=== PATIENT | female | born 1995 | race Caucasian/White ===

== ENCOUNTER 2025-02-20 04:30 | Observation (INO) | payer BC ==
[~2025-02-20] VITALS: Ht 170.2 cm; Wt 113.4 kg
--- NOTE | 2025-02-20 06:06 | DVHDS2 ---
Discharge Summary Date of Admission Feb 20, 2025 at 04:30 Date of Discharge: Feb 20, 2025 Admitting Diagnosis Rule out PIH 39-6/7 week Wounds: None Labs/Diagnostic Data: Pending Brief Hx & Hospital Course: Patient had NST performed pending PH labs we will handed off to the day shift Dr. Montero Consults/Reason for consult None Operations or Procedures None Condition at Discharge: Good Final Diagnosis/Problems List 39+ weeks rule out PH Discharge Disposition: Home Discharge Instruct/Medications Diet: Regular Activity: Light activity Activity comment: PH precautions and kick counts early follow up in monitoring Follow Up/Referral: As scheduled Discharge Statement: "Patient was advised to return to the ER or call 911 if any headaches, dizziness, shortness of breath, chest pain, abdominal pain, bleeding, fevers, or worsening of medical condition. Patient was counseled about treatment plan, medications, possible side effects, patientverbalized understanding. All questions were answered to the best of my ability. This discharge took greater then 30 minutes in planning, reviewing documentation, counseling the patient, and discussing with other team members." DME: Diagnosis: 39+ weeks rule out PIH ASSESSMENT ASSESSMENT Assessment Visit Coding OBGYN Date of Service: Feb 20, 2025 Billing Provider: EMIL VENTURA DO CONFIDENTIAL INVESTIGATOR Common Visit Codes: 58183-IRD/OBS SAME DATE (LOW), 98974-PZD/OBS SAME DATE (MOD) CONFIDENTIAL INVESTIGATOR Procedure Codes: 31796-22- NON-STRESS TEST EMIL VENTURA DO Feb 20, 2025 06:06
[2025-02-20 07:29] LABS: Hematocrit 37.4 % (36.0-46.0); Hemoglobin 12.9 g/dL (12.2-16.2); Mean Corpuscular Hemoglobin 31.1 pg (28.0-32.0); Mean Corpuscular Volume 90.6 fL (80.0-100.0); Nucleated Red Blood Cells % 0.0 %
[2025-02-20 07:31] LABS: Alanine Aminotransferase 16 U/L (7-40); Calcium 9.0 mg/dL (8.7-10.4); Carbon Dioxide 22 mmol/L (20-31); Chloride 105 mmol/L (98-107)
[2025-02-20 07:32] LABS: Albumin 3.6 g/dL (3.2-4.8); Anion Gap 10 (5-15); BUN/Creatinine Ratio 10.4 (10.0-20.0); Glucose 77 mg/dL (74-106); Potassium 3.7 mmol/L (3.5-5.1); Sodium 137 mmol/L (136-145); Total Protein 6.4 g/dL (5.7-8.2); Uric Acid 6.3 mg/dL (3.1-7.8)
[2025-02-20 07:35] LABS: Alkaline Phosphatase 159 U/L (46-116); Bilirubin, Total 0.3 mg/dL (0.2-1.0); Blood Urea Nitrogen 7 mg/dL (9-23)
--- NOTE | 2025-02-20 08:06 | DVH ---
LIMITED OB ULTRASOUND > 14 WKS: HISTORY: Estimated weight. -induced hypertension. TECHNIQUE: Multiple real-time grayscale images of the gravid uterus with duplex Doppler color flow an d M-mode spectral analysis. biophysical profile was also performed. COMPARISON: None. FINDINGS: IUP single live fetus at 39 weeks 5 days based on composite averages of the BPD, head circumference, abdominal circumference and femur length. Estimated weight 3918 grams. heart rate 143 beats per minute. JEN 11.6 cm Cervix is not visualized. Cephalic presentation Grade 3 placenta without previa or abruption, in posterior position. BPP profile is an overall score of 8/8, with 2/2 points for breathing, with at least one episode of breathing over a 30 second duration during a 30 minute observation, 2/2 points for m ovements, with 3 or more discrete body or limb movements, 2/2 points for tone, with one or more episodes of extremity extension with return to flexion, or opening and closing of hand, and 2/ 2 points for amniotic fluid, with at least 1 pocket of amniotic fluid that measures 2 cm in 2 perpend icular planes. IMPRESSION: 1. IUP single live fetus at 39 weeks 5 days AUA corresponding to an RADHA of 02/22/2025. 2. BPP score of 8/8.
[2025-02-20 08:10] LABS: INR 0.92 (0.9-1.15); Partial Thromboplastin Time 27.2 SEC (24.5-34.5); Prothrombin Time 9.8 sec (9.3-11.8)
[2025-02-20] MEDS: ACETAMINOPHEN 500 MG TAB or CAP PO ONE (08:31)
[2025-02-20 08:40] LABS: Urine Protein, UAD Negative (Negative)
[2025-02-20] MEDS ORDERED: PREN-96 PO (09:11)
--- NOTE | 2025-02-20 09:26 | DVHDS2 ---
Physician Discharge Progress N Final Diagnosis: 39+ weeks ruled out PreE Operations or Procedures: Operations or Procedures S: 29y/o patient iup @39.6w GA presents with complaints of headache 3/10 and swelling in hands and feet. Denies any LOF, VB, RUQ pain, vision changes' PNC with Dr. Montero, uncomplicated, has appt with her today O: VSS, see CPN, labs and sono WNL NST reactive PC ratio pending, lab unable to provide estimated time for results Tylenol 1000mg PO ordered Laboratory Tests Test 02/20/25 06:39 02/20/25 08:13 Range/Units White Blood Count 11.5 H 4.4-10.8 10^3/uL Red Blood Count 4.13 4.0-5.20 10^6/uL Hemoglobin 12.9 12.2-16.2 g/dL Hematocrit 37.4 36.0-46.0 % Mean Corpuscular Volume 90.6 80.0-100.0 fL Mean Corpuscular Hemoglobin 31.1 28.0-32.0 pg Mean Corpuscular Hemoglobin Concent 34.4 32.0-36.0 g/dL Red Cell Distribution Width 13.5 11.8-14.3 % Platelet Count 119 L 140-450 10^3/uL Mean Platelet Volume 11.6 H 6.9-10.8 fL Neutrophils (%) (Auto) 72.5 37.0-80.0 % Lymphocytes (%) (Auto) 19.3 10.0-50.0 % Monocytes (%) (Auto) 7.0 0.0-12.0 % Eosinophils (%) (Auto) 1.0 0.0-7.0 % Basophils (%) (Auto) 0.2 0.0-2.0 % Neutrophils # (Auto) 8.4 1.6-8.6 10 ^3/uL Lymphocytes # (Auto) 2.2 0.4-5.4 10 ^3/uL Monocytes # (Auto) 0.8 0-1.3 10 ^3/uL Eosinophils # (Auto) 0.1 0-0.8 10 ^3/uL Basophils # (Auto) 0 0-0.2 10 ^3/uL Nucleated Red Blood Cells 0.0 % Prothrombin Time 9.8 9.3-11.8 sec Prothrombin Time INR 0.92 0.9-1.15 Activated Partial Thromboplast Time 27.2 24.5-34.5 SEC Sodium Level 137 136-145 mmol/L Potassium Level 3.7 3.5-5.1 mmol/L Chloride Level 105 98-107 mmol/L Carbon Dioxide Level 22 20-31 mmol/L Anion Gap 10 5-15 Blood Urea Nitrogen 7 L 9-23 mg/dL Creatinine 0.67 0.550-1.02 mg/dL Glomerular Filtration Rate Calc 123 >90 mL/min BUN/Creatinine Ratio 10.4 10.0-20.0 Serum Glucose 77 74-106 mg/dL Uric Acid 6.3 3.1-7.8 mg/dL Calcium Level 9.0 8.7-10.4 mg/dL Total Bilirubin 0.3 0.2-1.0 mg/dL Aspartate Amino Transferase (AST) 16 13-40 U/L Alanine Aminotransferase (ALT) 16 7-40 U/L Alkaline Phosphatase 159 H 46-116 U/L Total Protein 6.4 5.7-8.2 g/dL Albumin 3.6 3.2-4.8 g/dL Urine Color Colorless Yellow Urine Clarity Clear Clear Urine pH 6.5 5.0-9.0 Urine Specific [place] 1.005 1.001-1.035 Urine Protein Negative Negative Urine Ketones Negative Negative Urine Blood Negative Negative /uL Urine Nitrite Negative Negative Urine Bilirubin Negative Negative Urine Urobilinogen Normal Negative mg/dL Urine Leukocyte Esterase Negative Negative /uL Urine RBC 1 0 - 4 /hpf Urine Microscopic WBC 2 0-5 /HPF Urine Squamous Epithelial Cells Few <5 /hpf Urine Bacteria None seen None Seen /hpf Urine Creatinine Pending Urine Protein/Creatinine Ratio Pending Urine Glucose Normal Normal mg/dL Urine Total Protein Pending A: 29y/o patient iup @39.6w Ruled out PreE P: Dr. Montero consulted, okay to discharge home. F/U in 3 days for monitoring for term FKC, labor, PreE precautions given Other Interventions Other Interventions [facility] [id number] [place] [id number] Ph: [phone] DIAGNOSTIC IMAGING Diagnostic Imaging Report : [id number] Signed PATIENT: HODAN YOUNGBLOOD ACCT: [id number] UNIT: [id number] : 1995 LOC: LD ROOM / BED: [facility] / A AGE / SEX: 29 / F ADM STATUS: ADM IN SERVICE 9 ORDERING PHYSICIAN: STEFANO HERNANDEZ CNM PROCEDURE(s): BPP - BIOPHYSICAL PROFILE REASON: R/O PIH ORDER NUMBER(s): [id number], ACCESSION NUMBER(s): [id number] LIMITED OB ULTRASOUND > 14 WKS: HISTORY: Estimated weight. -induced hypertension. TECHNIQUE: Multiple real-time grayscale images of the gravid uterus with duplex Doppler color flow and M-mode spectral analysis. biophysical profile was also performed. COMPARISON: None. FINDINGS: IUP single live fetus at 39 weeks 5 days based on composite averages of the BPD, head circumference, abdominal circumference and femur length. Estimated weight 3918 grams. heart rate 143 beats per minute. JEN 11.6 cm Cervix is not visualized. Cephalic presentation Grade 3 placenta without previa or abruption, in posterior position. BPP profile is an overall score of 8/8, with 2/2 points for breathing, with at least one episode of breathing over a 30 second duration during a 30 minute observation, 2/2 points for movements, with 3 or more discrete body or limb movements, 2/2 points for tone, with one or more episodes of extremity extension with return to flexion, or opening and closing of hand, and 2/2 points for amniotic fluid, with at least 1 pocket of amniotic fluid that measures 2 cm in 2 perpendicular planes. IMPRESSION: 1. IUP single live fetus at 39 weeks 5 days AUA corresponding to an RADHA of 01/30. 2. BPP score of 8/8. ATED BY: REINIER MCALLISTER DO DICTATED DATE/TIME: 02/20/25803 SIGNED BY: REINIER MCALLISTER DO SIGNED DATE/TIME: 02/20/25803 CC: Condition on Discharge: Stable Disposition: Home Discharge Instructions: Diet: Regular Activity: No Restrictions, As Tolerated Activity comment: PIH precautions and kick counts early follow up in monitoring Follow Up/Referral: As scheduled Medications: See med list Follow Up Care: Specialist: F/U in 3 days Discharge Statement: "Patient was advised to return to the ER or call 911 if any headaches, dizziness, shortness of breath, chest pain, abdominal pain, bleeding, fevers, or worsening of medical condition. Patient was counseled about treatment plan, medications, possible side effects, patientverbalized understanding. All questions were answered to the best of my ability. This discharge took greater then 30 minutes in planning, reviewing documentation, counseling the patient, and discussing with other team members." Visit Coding OBGYN Date of Service: Feb 20, 2025 Billing Provider: STEFANO HERNANDEZ CNM VICE PRESIDENT OF OPERATIONS Common Visit Codes: [id number] OBS CARE (MOD) VICE PRESIDENT OF OPERATIONS Procedure Codes: 06677-32- NON-STRESS TEST STEFANO HERNANDEZ CNM Feb 20, 2025 09:26
[2025-02-20 10:19] LABS: Protein, Urine < 6.0 mg/dL (1-14)
== END 2025-02-20 09:27 | disposition home or self-care (01) ==
LOC: LDRP 04:30
PROVIDERS: ADMIT Obstetrics & Gynecology; ATTEND Obstetrics & Gynecology
DX: O26.893 Other specified pregnancy related conditions, third trimester (principal); R51.9 Headache, unspecified; R60.9 Edema, unspecified; Z3A.39 39 weeks gestation of pregnancy; Z98.890 Other specified postprocedural states; Z86.2 Personal history of diseases of the blood and blood-forming organs and certain disorders involving the immune mechanism
CPT/HCPCS: 36415; 76805; 76818; 80053; 81001; 81002; 82570; 84156; 84550; 85025; 85610; 85730; 94760; G0378; 59025; 76819

== ENCOUNTER 2025-02-22 14:45 | Inpatient (IN) | payer BC ==
[~2025-02-22] VITALS: Ht 170.2 cm; Wt 115.2 kg
[~2025-02-22 14:45] MED LIST: PREN-96 PO
[2025-02-22] MEDS ORDERED: BUTORPHANOL TARTRATE 2 MG/1 ML VIAL IV PRN ×2 (15:30)
[2025-02-22] MEDS ORDERED: LACT. RINGERS/OXYTOCIN 20UNITS 500 ML IV ONE ×2 (15:30→16:00)
[2025-02-22] MEDS ORDERED: LIDOCAINE 2%HCL (LOCAL ANESTH.) INJ 20ML MDV IJ PRN (15:30)
[2025-02-22] MEDS ORDERED: LACT. RINGERS/OXYTOCIN 20UNITS 1,000 ML IV SCH (16:15)
[2025-02-22] MEDS ORDERED: TERBUTALINE SULFATE 1 MG/ML 1ML VIAL SC PRN (16:15)
[2025-02-22 16:19] LABS: Hematocrit 39.0 % (36.0-46.0); Hemoglobin 13.3 g/dL (12.2-16.2); Mean Corpuscular Hemoglobin 30.9 pg (28.0-32.0); Mean Corpuscular Volume 90.4 fL (80.0-100.0); Nucleated Red Blood Cells % 0.0 %
[2025-02-22 16:33] LABS: Urine Budding Yeast OCCASIONAL /hpf (None Seen); Urine Protein, UAD Negative (Negative)
[2025-02-22 16:36] LABS: INR 0.92 (0.9-1.15); Partial Thromboplastin Time 26.0 SEC (24.5-34.5); Prothrombin Time 9.8 sec (9.3-11.8)
[2025-02-22 16:37] LABS: Alanine Aminotransferase 16 U/L (7-40); Albumin 3.6 g/dL (3.2-4.8); Alkaline Phosphatase 166 U/L (46-116); Anion Gap 11 (5-15); BUN/Creatinine Ratio 9.3 (10.0-20.0); Bilirubin, Total 0.2 mg/dL (0.2-1.0); Blood Urea Nitrogen 8 mg/dL (9-23); Calcium 9.4 mg/dL (8.7-10.4); Carbon Dioxide 23 mmol/L (20-31); Chloride 105 mmol/L (98-107); Glucose 91 mg/dL (74-106); Potassium 3.9 mmol/L (3.5-5.1); Sodium 139 mmol/L (136-145); Total Protein 6.5 g/dL (5.7-8.2)
[2025-02-22 16:46] LABS: Amphetamine Screen, Urine Neg (NEGATIVE); Barbiturate Scree,Urine Neg (NEGATIVE); Benzodiazephine Screen, Urine Neg (NEGATIVE); Cannabinoid Screen, Urine Neg (NEGATIVE); Cocaine Screen, Urine Neg (NEGATIVE); Opiate Scree,Urine Neg (NEGATIVE); Phencyclidine Screen, Urine Neg (NEGATIVE)
[2025-02-22] MEDS: LACTATED RINGER'S 1,000 ML IV SCH (16:46)
[2025-02-22] MEDS: WITCH HAZEL-GLYCERIN PAD TOP PRN (16:46)
[2025-02-22] MEDS: DERMOPLAST 60ML BOTTLE TOP PRN (16:46)
[2025-02-22] MEDS: PHISODERM TOP SOLN 240ML BTL TOP PRN (16:46)
--- NOTE | 2025-02-22 17:11 | DVHHP ---
CHIEF COMPLAINT: Labor. HISTORY OF PRESENT ILLNESS: The patient is a 29-year-old 1, para 0 with EDC 02/20, estimated gestational age of 40 plus weeks, admitted for labor. The patient denied having any rupture of membranes or vaginal bleeding. PAST MEDICAL HISTORY: None. PAST SURGICAL HISTORY: None. SOCIAL HISTORY: None. FAMILY HISTORY: None. OB-CAREER DEVELOPMENT SPECIALIST HISTORY: Primigravid. ALLERGIES: No known drug allergies. REVIEW OF SYSTEMS: Consistent with HPI. PHYSICAL EXAMINATION: VITAL SIGNS: Stable, afebrile. HEENT: Within normal limits. CARDIOVASCULAR: Regular rate and rhythm. LUNGS: Clear to auscultation. BREASTS: Symmetrical. No masses. ABDOMEN: Gravid. Positive heart. PELVIC: 3 cm -1. EXTREMITIES: No clubbing, cyanosis, or edema. IMPRESSION: Term , in labor. PLAN: Expectant management. Informed consent obtained. DO MIKAEL Smith/SHANTA TID: [id number] RECEIPT: [id number]
[2025-02-22] MEDS ORDERED: NALOXONE HCL 0.4 MG/ML VIAL IV ONE (17:45)
--- NOTE | 2025-02-22 19:41 | EPIDURAL ---
Anesthesia Procedural Note - Epidural Informed consent obtained?: Yes Medication Administered: Fentanyl 100 mcg Sterile prept drape: Yes Spinal level of insertion: L4-L5 Test dose of lidocaine & Epine: Negative Infusion started: Yes Start time: 19:10 End time: 19:35 Procedure description Procedure description: Called for labor epidural. Chart reviewed, patient examined, history taken. Patient is G1Po, here for induction for PIH. Receiving pitocin augmentation, requesting labor epidural. Informed consent for CSE obtained. Sitting position, sterile prep and drape. Time out done. L4-5 space infiltrated with 1% lido. Epidural needle placed with SAMANTHA at 7cm. 25G spinal needle +clear CSF. 15mcg fentanyl IT. Epidural catheter secured at 14cm. Aspiration and test dose (3cc 1.5% lido with epi) negative. 85 mcg fentanyl given via catheter. Patient reports pain relief. 0.2% ropivacaine infusion started. Will follow as needed. SAMIRA GONZALES MD Feb 22, 2025 19:41
[2025-02-22] MEDS ORDERED: diphenhdrAMINE HCL 50 MG/1 ML VL IV PRN (19:45)
[2025-02-22] MEDS ORDERED: FAMOTIDINE (10MG/ML) 2ML VL IV ONE (19:45)
[2025-02-22] MEDS ORDERED: LIDOCAINE HCL 2 %PF INJ 10ML AMP IJ ONE (19:49)
--- NOTE | 2025-02-22 22:26 | DVH ---
OB ULTRASOUND <14 WEEKS: HISTORY: VAGINAL BLEEDING TECHNIQUE: Multiple real-time grayscale sonographic images of the pelvis with duplex doppler color fl ow, spectral and M-mode analysis. COMPARISON: US OB ULTRASOUND COMP GTR 14 WKS on DOS: 02/20/25 FINDINGS: Limited pelvic ultrasound was performed. Single live internal destination with heart rate of 144 BPM. Presentation is cephalic. Placenta is posterior and clear of the internal loss. JEN 11.2 cm. IMPRESSION: Single live intrauterine gestation. Cephalic presentation. JEN within normal limits.
--- NOTE | 2025-02-22 22:42 | DVHPN2 ---
CNM Labor Progress Note Date and Time Seen Date Seen: Feb 22, 2025 Time Seen: 21:40 Subjective Patient reports: Feels worse Subjective Comment Dorothy is having some breakthrough pain on her lower R side. Otherwise, her legs are numb and she is comfortable. primary RN called CNM to bedside r/t bleeding and patient feelings of pressure. Objective Vital Signs VSS. Moderate amount of blood noted on chux. After cervical exam, moderate amount of show on glove with half dollar sized clot. Monitoring Method Monitoring Method: External Heart Rate Heart Rate Baseline: 135 Heart Rate Variability: Moderate Presence of FHR Accelerations: Yes Presence of FHR Decelerations: Yes Heart Rate Type of Decel: Early Deceleraions, Late Decelerations Comment on Trends or Patterns: intermittent cat 2 Contractions Contractions Frequency: Other (every 1-3 minutes) Contractions Intensity: Moderate Contractions Resting Tone: Relaxed Membranes Membranes: Ruptured Amniotic Fluid Color: Clear, Bloody Vaginal Exam Vag Exam Deferred: No Vaginal Exam Dilation: 6 Vaginal Exam Effacement: 90 Vaginal Exam Station: -1 Vaginal Exam Presentation: VTX Vaginal Exam Show: Large Medications Medications - Pitocin: No Medication - Epidural: Yes Lab Results Lab Results Current Medications Medications (Trade) Dose Ordered Sig/Bradly Start Time Stop Time Status Last Admin Dose Admin Lactated Ringer's 1,000 ml @ 125 mls/hr Q8H 02/22/25 15:30 02/22/25 16:46 125 MLS/HR Witch Eliana (Tucks) 1 pad PRN PRN 02/22/25 15:30 02/22/25 16:46 1 PAD Sodium Lauryl Sulfate (Phisoderm) 240 ml PRN PRN 02/22/25 15:30 02/22/25 16:46 240 ML Benzocaine (Dermoplast) 1 applic PRN PRN 02/22/25 15:30 02/22/25 16:46 1 APPLIC Butorphanol Tartrate (Stadol Injection) 1 mg Q4HPRN PRN 02/22/25 15:30 Butorphanol Tartrate (Stadol Injection) 2 mg Q4HPRN PRN 02/22/25 15:30 Lidocaine HCl (Xylocaine) 20 ml ONCE PRN 02/22/25 15:30 Oxytocin 500 ml @ 999 mls/hr Q31M ONCE 02/22/25 15:30 02/22/25 16:00 DC Oxytocin 500 ml @ 125 mls/hr Q4H ONCE 02/22/25 16:00 02/22/25 19:59 DC Oxytocin 1,000 ml @ 6 ml/hr Q24H 02/22/25 16:15 Terbutaline Sulfate (Brethine Inj) 0.25 mg ONCE PRN 02/22/25 16:15 Naloxone HCl (Narcan) 0.2 mg PRN ONCE 02/22/25 17:45 02/22/25 17:46 DC Ephedrine Sulfate (ePHEDrine SULFATE) 10 mg PRN ONCE 02/22/25 17:45 02/22/25 17:46 DC Fentanyl Citrate 100 mcg ONCE ONCE 02/22/25 17:45 02/22/25 17:46 DC Famotidine (Pepcid Injection) 20 mg ONCE ONCE 02/22/25 19:45 02/22/25 20:03 DC Diphenhydramine HCl (Benadryl Injection) 25 mg Q6HP PRN 02/22/25 19:45 Laboratory Tests Test 02/22/25 16:00 02/22/25 15:25 Range/Units White Blood Count 12.6 H 4.4-10.8 10^3/uL Red Blood Count 4.32 4.0-5.20 10^6/uL Hemoglobin 13.3 12.2-16.2 g/dL Hematocrit 39.0 36.0-46.0 % Mean Corpuscular Volume 90.4 80.0-100.0 fL Mean Corpuscular Hemoglobin 30.9 28.0-32.0 pg Mean Corpuscular Hemoglobin Concent 34.2 32.0-36.0 g/dL Red Cell Distribution Width 13.5 11.8-14.3 % Platelet Count 136 L 140-450 10^3/uL Mean Platelet Volume 11.7 H 6.9-10.8 fL Neutrophils (%) (Auto) 75.1 37.0-80.0 % Lymphocytes (%) (Auto) 18.3 10.0-50.0 % Monocytes (%) (Auto) 5.3 0.0-12.0 % Eosinophils (%) (Auto) 0.5 0.0-7.0 % Basophils (%) (Auto) 0.8 0.0-2.0 % Neutrophils # (Auto) 9.5 H 1.6-8.6 10 ^3/uL Lymphocytes # (Auto) 2.3 0.4-5.4 10 ^3/uL Monocytes # (Auto) 0.7 0-1.3 10 ^3/uL Eosinophils # (Auto) 0.1 0-0.8 10 ^3/uL Basophils # (Auto) 0.1 0-0.2 10 ^3/uL Nucleated Red Blood Cells 0.0 % Prothrombin Time 9.8 9.3-11.8 sec Prothrombin Time INR 0.92 0.9-1.15 Activated Partial Thromboplast Time 26.0 24.5-34.5 SEC Sodium Level 139 136-145 mmol/L Potassium Level 3.9 3.5-5.1 mmol/L Chloride Level 105 98-107 mmol/L Carbon Dioxide Level 23 20-31 mmol/L Anion Gap 11 5-15 Blood Urea Nitrogen 8 L 9-23 mg/dL Creatinine 0.86 0.550-1.02 mg/dL Glomerular Filtration Rate Calc 95 >90 mL/min BUN/Creatinine Ratio 9.3 L 10.0-20.0 Serum Glucose 91 74-106 mg/dL Calcium Level 9.4 8.7-10.4 mg/dL Total Bilirubin 0.2 0.2-1.0 mg/dL Aspartate Amino Transferase (AST) 17 13-40 U/L Alanine Aminotransferase (ALT) 16 7-40 U/L Alkaline Phosphatase 166 H 46-116 U/L Total Protein 6.5 5.7-8.2 g/dL Albumin 3.6 3.2-4.8 g/dL Treponema pallidum Antibody Non-reactive Negative Hepatitis C Antibody Negative Negative Urine Color Yellow Yellow Urine Clarity Turbid H Clear Urine pH 6.5 5.0-9.0 Urine Specific [place] 1.020 1.001-1.035 Urine Protein Negative Negative Urine Ketones Negative Negative Urine Blood Negative Negative /uL Urine Nitrite Negative Negative Urine Bilirubin Negative Negative Urine Urobilinogen Normal Negative mg/dL Urine Leukocyte Esterase 2+ Negative /uL Urine RBC 1 0 - 4 /hpf Urine Microscopic WBC 6 H 0-5 /HPF Urine Squamous Epithelial Cells Mod <5 /hpf Urine Bacteria None seen None Seen /hpf Urine Mucus Few None Seen Urine Yeast (Budding) Occasional None Seen /hpf Urine Glucose Normal Normal mg/dL Urine Opiates Screen Neg NEGATIVE Urine Fentanyl Screen Neg NEGATIVE Urine Barbiturates Screen Neg NEGATIVE Urine Phencyclidine Screen Neg NEGATIVE Urine Amphetamines Screen Neg NEGATIVE Urine Benzodiazepines Screen Neg NEGATIVE Urine Cocaine Screen Neg NEGATIVE Urine Cannabinoids Screen Neg NEGATIVE Assessment Assessment -29 yo with IUP at 40w1d -Induction of labor- PIH. Active labor -Intermittent Category 2 tracing -hx: asthma -SROM @ 1554. bloody fluid -GBS negative Plan Plan -Pitocin discontinued r/t decelerations -US order to r/o placental abruption. Hemorrhage cart will be available at delivery -Continue repositioning patient frequently and as needed for tracing and maternal comfort -hx: asthma. no hemabate. team aware. -Will discuss case with Dr Montero. Re-assess patient cervix in 1-2 hours to assess need for augmentation Plan discussed with: Patient, Spouse, Other (parents) Visit Coding OBGYN Date of Service: Feb 22, 2025 Billing Provider: LISA LORD CNM AUTOMOBILE DETAILER Common Visit Codes: [id number] INP/OBS CARE(HIGH) LISA LORD CNM Feb 22, 2025 22:42
[2025-02-22] MEDS ORDERED: fentaNYL CITRATE 100 MCG/2 ML VL ONE (23:16)
--- NOTE | 2025-02-22 23:38 | DVHPN2 ---
CNM Labor Progress Note Date and Time Seen Date Seen: Feb 22, 2025 Time Seen: 23:15 Subjective Patient reports: Feels better Subjective Comment CNM at bedside r/t decelerations. Patient got epidural bolus and is feeling better Monitoring Method Monitoring Method: External Heart Rate Heart Rate Baseline: 145 Heart Rate Variability: Minimal Presence of FHR Accelerations: No Presence of FHR Decelerations: Yes Heart Rate Type of Decel: Late Decelerations Comment on Trends or Patterns: cat 2 Contractions Contractions Frequency: Other (every 1-3 minutes) Contractions Intensity: Moderate Contractions Resting Tone: Relaxed Membranes Membranes: Ruptured Amniotic Fluid Color: Bloody Vaginal Exam Vag Exam Deferred: Yes Medications Medications - Pitocin: No Medication - Epidural: Yes Lab Results Lab Results Current Medications Medications (Trade) Dose Ordered Sig/Bradly Start Time Stop Time Status Last Admin Dose Admin Lactated Ringer's 1,000 ml @ 125 mls/hr Q8H 02/22/25 15:30 02/22/25 16:46 125 MLS/HR Yaquelin Monroy (Tucks) 1 pad PRN PRN 02/22/25 15:30 02/22/25 16:46 1 PAD Sodium Lauryl Sulfate (Phisoderm) 240 ml PRN PRN 02/22/25 15:30 02/22/25 16:46 240 ML Benzocaine (Dermoplast) 1 applic PRN PRN 02/22/25 15:30 02/22/25 16:46 1 APPLIC Butorphanol Tartrate (Stadol Injection) 1 mg Q4HPRN PRN 02/22/25 15:30 Butorphanol Tartrate (Stadol Injection) 2 mg Q4HPRN PRN 02/22/25 15:30 Lidocaine HCl (Xylocaine) 20 ml ONCE PRN 02/22/25 15:30 Oxytocin 500 ml @ 999 mls/hr Q31M ONCE 02/22/25 15:30 02/22/25 16:00 DC Oxytocin 500 ml @ 125 mls/hr Q4H ONCE 02/22/25 16:00 02/22/25 19:59 DC Oxytocin 1,000 ml @ 6 ml/hr Q24H 02/22/25 16:15 Terbutaline Sulfate (Brethine Inj) 0.25 mg ONCE PRN 02/22/25 16:15 Naloxone HCl (Narcan) 0.2 mg PRN ONCE 02/22/25 17:45 02/22/25 17:46 DC Ephedrine Sulfate (ePHEDrine SULFATE) 10 mg PRN ONCE 02/22/25 17:45 02/22/25 17:46 DC Fentanyl Citrate 100 mcg ONCE ONCE 02/22/25 17:45 02/22/25 17:46 DC Famotidine (Pepcid Injection) 20 mg ONCE ONCE 02/22/25 19:45 02/22/25 20:03 DC Diphenhydramine HCl (Benadryl Injection) 25 mg Q6HP PRN 02/22/25 19:45 Laboratory Tests Test 02/22/25 16:00 02/22/25 15:25 Range/Units White Blood Count 12.6 H 4.4-10.8 10^3/uL Red Blood Count 4.32 4.0-5.20 10^6/uL Hemoglobin 13.3 12.2-16.2 g/dL Hematocrit 39.0 36.0-46.0 % Mean Corpuscular Volume 90.4 80.0-100.0 fL Mean Corpuscular Hemoglobin 30.9 28.0-32.0 pg Mean Corpuscular Hemoglobin Concent 34.2 32.0-36.0 g/dL Red Cell Distribution Width 13.5 11.8-14.3 % Platelet Count 136 L 140-450 10^3/uL Mean Platelet Volume 11.7 H 6.9-10.8 fL Neutrophils (%) (Auto) 75.1 37.0-80.0 % Lymphocytes (%) (Auto) 18.3 10.0-50.0 % Monocytes (%) (Auto) 5.3 0.0-12.0 % Eosinophils (%) (Auto) 0.5 0.0-7.0 % Basophils (%) (Auto) 0.8 0.0-2.0 % Neutrophils # (Auto) 9.5 H 1.6-8.6 10 ^3/uL Lymphocytes # (Auto) 2.3 0.4-5.4 10 ^3/uL Monocytes # (Auto) 0.7 0-1.3 10 ^3/uL Eosinophils # (Auto) 0.1 0-0.8 10 ^3/uL Basophils # (Auto) 0.1 0-0.2 10 ^3/uL Nucleated Red Blood Cells 0.0 % Prothrombin Time 9.8 9.3-11.8 sec Prothrombin Time INR 0.92 0.9-1.15 Activated Partial Thromboplast Time 26.0 24.5-34.5 SEC Sodium Level 139 136-145 mmol/L Potassium Level 3.9 3.5-5.1 mmol/L Chloride Level 105 98-107 mmol/L Carbon Dioxide Level 23 20-31 mmol/L Anion Gap 11 5-15 Blood Urea Nitrogen 8 L 9-23 mg/dL Creatinine 0.86 0.550-1.02 mg/dL Glomerular Filtration Rate Calc 95 >90 mL/min BUN/Creatinine Ratio 9.3 L 10.0-20.0 Serum Glucose 91 74-106 mg/dL Calcium Level 9.4 8.7-10.4 mg/dL Total Bilirubin 0.2 0.2-1.0 mg/dL Aspartate Amino Transferase (AST) 17 13-40 U/L Alanine Aminotransferase (ALT) 16 7-40 U/L Alkaline Phosphatase 166 H 46-116 U/L Total Protein 6.5 5.7-8.2 g/dL Albumin 3.6 3.2-4.8 g/dL Treponema pallidum Antibody Non-reactive Negative Hepatitis C Antibody Negative Negative Urine Color Yellow Yellow Urine Clarity Turbid H Clear Urine pH 6.5 5.0-9.[address] 1.020 1.001-1.035 Urine Protein Negative Negative Urine Ketones Negative Negative Urine Blood Negative Negative /uL Urine Nitrite Negative Negative Urine Bilirubin Negative Negative Urine Urobilinogen Normal Negative mg/dL Urine Leukocyte Esterase 2+ Negative /uL Urine RBC 1 0 - 4 /hpf Urine Microscopic WBC 6 H 0-5 /HPF Urine Squamous Epithelial Cells Mod <5 /hpf Urine Bacteria None seen None Seen /hpf Urine Mucus Few None Seen Urine Yeast (Budding) Occasional None Seen /hpf Urine Glucose Normal Normal mg/dL Urine Opiates Screen Neg NEGATIVE Urine Fentanyl Screen Neg NEGATIVE Urine Barbiturates Screen Neg NEGATIVE Urine Phencyclidine Screen Neg NEGATIVE Urine Amphetamines Screen Neg NEGATIVE Urine Benzodiazepines Screen Neg NEGATIVE Urine Cocaine Screen Neg NEGATIVE Urine Cannabinoids Screen Neg NEGATIVE Assessment Assessment ASSESSMENT -29 yo with IUP at 40w1d -Induction of labor- PIH. Active labor -Category 2 tracing -hx: asthma -SROM @ 7728. bloody fluid -GBS negative Plan Plan Plan -Pitocin discontinued r/t decelerations. Will continue to keep pitocin off at this time -US order to r/o placental abruption. US shows no sign of previa or abruption. Hemorrhage cart will be available at delivery -Continue repositioning patient frequently and as needed for tracing and maternal comfort -hx: asthma. no hemabate. team aware. -Discussed case with Dr Montero via telephone. SBAR regarding cat 2 tracing with lates, UC pattern, bleeding, pit off, SVE, and epidural bolus given. MD states to continue to monitor at this time Plan discussed with: Patient, Spouse Visit Coding OBGYN Date of Service: Feb 22, 2025 Billing Provider: LISA LORD CNM DEPUTY CHIEF COUNSEL Common Visit Codes: [id number] INP/OBS CARE(HIGH) LISA LORD CNM Feb 22, 2025 23:38
[2025-02-22] MEDS: fentaNYL CITRATE 100 MCG/2 ML VL IV ONE (23:53)
[2025-02-23] VITALS (19 sets, daily range): BP systolic 105–134; BP diastolic 55–71; PULSE 63–100; RESP 11–18; TEMP 98.5–98.8; O2SAT 94–99
--- NOTE | 2025-02-23 01:08 | DVHPN2 ---
CNM Labor Progress Note Date and Time Seen Date Seen: Feb 23, 2025 Time Seen: 00:50 Subjective Patient reports: Feels worse Subjective Comment Dorothy had relief from the R sided pelvic pain after the epidural top off, but the pain is coming back. Objective Vital Signs VSS. See CPN Monitoring Method Monitoring Method: External Heart Rate Heart Rate Baseline: 150 Heart Rate Variability: Moderate Presence of FHR Accelerations: No Presence of FHR Decelerations: Yes Heart Rate Type of Decel: Early Deceleraions, Variable Decelerations, Late Decelerations Comment on Trends or Patterns: cat 2 Contractions Contractions Intensity: Moderate Contractions Resting Tone: Relaxed Membranes Membranes: Ruptured Amniotic Fluid Color: Bloody Vaginal Exam Vag Exam Deferred: No Vaginal Exam Dilation: 10 Vaginal Exam Effacement: 100 Vaginal Exam Station: 0 Vaginal Exam Presentation: VTX Vaginal Exam Show: Small Medications Medications - Pitocin: No Lab Results Lab Results Vital Signs Date Time Temp Pulse Resp B/P (MAP) Pulse Ox O2 Delivery O2 Flow Rate FiO2 02/22/25 23:53 135/74 Current Medications Medications (Trade) Dose Ordered Sig/Bradly Start Time Stop Time Status Last Admin Dose Admin Lactated Ringer's 1,000 ml @ 125 mls/hr Q8H 02/22/25 15:30 02/22/25 23:39 125 MLS/HR Yaquelin Monroy (Tucks) 1 pad PRN PRN 02/22/25 15:30 02/22/25 16:46 1 PAD Sodium Lauryl Sulfate (Phisoderm) 240 ml PRN PRN 02/22/25 15:30 02/22/25 16:46 240 ML Benzocaine (Dermoplast) 1 applic PRN PRN 02/22/25 15:30 02/22/25 16:46 1 APPLIC Butorphanol Tartrate (Stadol Injection) 1 mg Q4HPRN PRN 02/22/25 15:30 Butorphanol Tartrate (Stadol Injection) 2 mg Q4HPRN PRN 02/22/25 15:30 Lidocaine HCl (Xylocaine) 20 ml ONCE PRN 02/22/25 15:30 Oxytocin 500 ml @ 999 mls/hr Q31M ONCE 02/22/25 15:30 02/22/25 16:00 DC Oxytocin 500 ml @ 125 mls/hr Q4H ONCE 02/22/25 16:00 02/22/25 19:59 DC Oxytocin 1,000 ml @ 6 ml/hr Q24H 02/22/25 16:15 Terbutaline Sulfate (Brethine Inj) 0.25 mg ONCE PRN 02/22/25 16:15 Naloxone HCl (Narcan) 0.2 mg PRN ONCE 02/22/25 17:45 02/22/25 17:46 DC Ephedrine Sulfate (ePHEDrine SULFATE) 10 mg PRN ONCE 02/22/25 17:45 02/22/25 17:46 DC Fentanyl Citrate 100 mcg ONCE ONCE 02/22/25 17:45 02/22/25 17:46 DC 02/22/25 23:53 100 MCG Famotidine (Pepcid Injection) 20 mg ONCE ONCE 02/22/25 19:45 02/22/25 20:03 DC Diphenhydramine HCl (Benadryl Injection) 25 mg Q6HP PRN 02/22/25 19:45 Laboratory Tests Test 02/22/25 16:00 02/22/25 15:25 Range/Units White Blood Count 12.6 H 4.4-10.8 10^3/uL Red Blood Count 4.32 4.0-5.20 10^6/uL Hemoglobin 13.3 12.2-16.2 g/dL Hematocrit 39.0 36.0-46.0 % Mean Corpuscular Volume 90.4 80.0-100.0 fL Mean Corpuscular Hemoglobin 30.9 28.0-32.0 pg Mean Corpuscular Hemoglobin Concent 34.2 32.0-36.0 g/dL Red Cell Distribution Width 13.5 11.8-14.3 % Platelet Count 136 L 140-450 10^3/uL Mean Platelet Volume 11.7 H 6.9-10.8 fL Neutrophils (%) (Auto) 75.1 37.0-80.0 % Lymphocytes (%) (Auto) 18.3 10.0-50.0 % Monocytes (%) (Auto) 5.3 0.0-12.0 % Eosinophils (%) (Auto) 0.5 0.0-7.0 % Basophils (%) (Auto) 0.8 0.0-2.0 % Neutrophils # (Auto) 9.5 H 1.6-8.6 10 ^3/uL Lymphocytes # (Auto) 2.3 0.4-5.4 10 ^3/uL Monocytes # (Auto) 0.7 0-1.3 10 ^3/uL Eosinophils # (Auto) 0.1 0-0.8 10 ^3/uL Basophils # (Auto) 0.1 0-0.2 10 ^3/uL Nucleated Red Blood Cells 0.0 % Prothrombin Time 9.8 9.3-11.8 sec Prothrombin Time INR 0.92 0.9-1.15 Activated Partial Thromboplast Time 26.0 24.5-34.5 SEC Sodium Level 139 136-145 mmol/L Potassium Level 3.9 3.5-5.1 mmol/L Chloride Level 105 98-107 mmol/L Carbon Dioxide Level 23 20-31 mmol/L Anion Gap 11 5-15 Blood Urea Nitrogen 8 L 9-23 mg/dL Creatinine 0.86 0.550-1.02 mg/dL Glomerular Filtration Rate Calc 95 >90 mL/min BUN/Creatinine Ratio 9.3 L 10.0-20.0 Serum Glucose 91 74-106 mg/dL Calcium Level 9.4 8.7-10.4 mg/dL Total Bilirubin 0.2 0.2-1.0 mg/dL Aspartate Amino Transferase (AST) 17 13-40 U/L Alanine Aminotransferase (ALT) 16 7-40 U/L Alkaline Phosphatase 166 H 46-116 U/L Total Protein 6.5 5.7-8.2 g/dL Albumin 3.6 3.2-4.8 g/dL Treponema pallidum Antibody Non-reactive Negative Hepatitis C Antibody Negative Negative Urine Color Yellow Yellow Urine Clarity Turbid H Clear Urine pH 6.5 5.0-9.0 Urine Specific [place] 1.020 1.001-1.035 Urine Protein Negative Negative Urine Ketones Negative Negative Urine Blood Negative Negative /uL Urine Nitrite Negative Negative Urine Bilirubin Negative Negative Urine Urobilinogen Normal Negative mg/dL Urine Leukocyte Esterase 2+ Negative /uL Urine RBC 1 0 - 4 /hpf Urine Microscopic WBC 6 H 0-5 /HPF Urine Squamous Epithelial Cells Mod <5 /hpf Urine Bacteria None seen None Seen /hpf Urine Mucus Few None Seen Urine Yeast (Budding) Occasional None Seen /hpf Urine Glucose Normal Normal mg/dL Urine Opiates Screen Neg NEGATIVE Urine Fentanyl Screen Neg NEGATIVE Urine Barbiturates Screen Neg NEGATIVE Urine Phencyclidine Screen Neg NEGATIVE Urine Amphetamines Screen Neg NEGATIVE Urine Benzodiazepines Screen Neg NEGATIVE Urine Cocaine Screen Neg NEGATIVE Urine Cannabinoids Screen Neg NEGATIVE Assessment Assessment ASSESSMENT -29 yo with IUP at 40w1d -Induction of labor- PIH. Second stage of labor -Category 2 tracing -hx: asthma -SROM @ 1554. bloody fluid -GBS negative Plan Plan Plan -Pitocin discontinued r/t decelerations. Will continue to keep pitocin off at this time -US shows no sign of previa or abruption. Hemorrhage cart will be available at delivery. Bleeding has significantly slowed -Continue repositioning patient frequently and as needed for tracing and maternal comfort -hx: asthma. no hemabate. team aware. -RN to begin pushing with patient. Discussed POC with Dr. Montero. Per patient was offered primary c/s multiple times and declined. Patient OK to begin pushing. Plan discussed with: Patient, Spouse Visit Coding OBGYN Date of Service: Feb 23, 2025 Billing Provider: LISA LORD CNM TYPEWRITER REPAIRER Common Visit Codes: [id number] INP/OBS CARE(HIGH) LISA LORD CNM Feb 23, 2025 01:08
[2025-02-23] MEDS: ROPIVACAINE HCL 100 ML ONE ×2 (01:55→01:56)
[2025-02-23] MEDS ORDERED: LACTATED RINGER'S 1,000 ML IV ONE (04:30)
[2025-02-23] MEDS ORDERED: HYDR-4072 PO (04:35)
[2025-02-23] MEDS ORDERED: CHLOROPROCAINE EPI ONE (04:35)
[2025-02-23] MEDS ORDERED: MORPHINE SULF PF 5 MG/10 ML VIAL ONE (04:35)
[2025-02-23] MEDS ORDERED: IBUP-1456 PO (04:35)
[2025-02-23] MEDS ORDERED: DOCU-94 PO (04:35)
[2025-02-23] MEDS ORDERED: fentaNYL CITRATE 100 MCG/2 ML VL ONE (04:36)
[2025-02-23] MEDS ORDERED: GLYCOPYRROLATE 0.2 MG/ML 1ML VIAL ONE (04:36)
[2025-02-23] MEDS ORDERED: ONDANSETRON HCL 4 MG/2 ML VIAL ONE (04:36)
[2025-02-23] MEDS ORDERED: PHENYLEPHRINE HCL 10 MG/ML VL ONE (04:36)
[2025-02-23] MEDS ORDERED: KETOROLAC TROMETH 30 MG/ML 1ML VIAL ONE (04:36)
--- NOTE | 2025-02-23 04:39 | DVHHP ---
ADMIT DATE: 02/22/2025 CHIEF COMPLAINT: Arrest of descent, suspect CPD. HISTORY OF PRESENT ILLNESS: The patient is a 29-year-old 1, para 0 with EDC 02/21, estimated gestational age of 40 weeks, admitted for induction of labor. The patient's estimated weight was 8 pounds 11 ounces. The patient was given option of primary , but she opted for a trial of vaginal delivery. Cervix got dilated to 10 cm, but remained at 0 station despite adequate contraction and pushing. Baby did not come down. PAST MEDICAL HISTORY: None. PAST SURGICAL HISTORY: None. SOCIAL HISTORY: None. FAMILY HISTORY: None. OBSTETRIC AND GYNECOLOGIC HISTORY: Primigravid. ALLERGIES: No known drug allergies. REVIEW OF SYSTEMS: Consistent with HPI. PHYSICAL EXAMINATION: VITAL SIGNS: Stable, afebrile. HEENT: Within normal limits. CARDIOVASCULAR: Regular rate and rhythm. LUNGS: Clear to auscultation. BREASTS: Symmetrical, no masses. ABDOMEN: Gravid. Positive heart. PELVIC: 10 cm, 0 station. EXTREMITIES: No clubbing, cyanosis or edema. IMPRESSION: * Intrauterine at 40 weeks with failure to progress. * Arrest of descent. PLAN: Primary low transverse section. Informed consent obtained. Risks and complications of surgery including infection, bleeding, hematoma formation, injury to bowel or bladder or surrounding organ, possibility of DVT, pulmonary embolism and risks of anesthesia were discussed with the patient. Options reviewed. All questions answered. The patient fully understands. She wishes to proceed with planned procedure. DO MELISSA Smith TID: [id number] RECEIPT: [id number]
[2025-02-23] MEDS ORDERED: LACT. RINGERS/OXYTOCIN 20UNITS 1,000 ML IV ONE (04:45)
[2025-02-23] MEDS ORDERED: GUM (CHEWING) 1 GUM CHEW CHEW ONE (04:45)
[2025-02-23] MEDS ORDERED: ONDANSETRON HCL 4 MG/2 ML VIAL IV PRN ×2 (04:45→06:00)
[2025-02-23] MEDS ORDERED: KETAMINE 50mg/ML 10ml Vial 10 ML ONE (04:50)
[2025-02-23] MEDS: ceFAZolin 2 GM/D5W50ml 50 ML IV ONE (04:55)
--- NOTE | 2025-02-23 05:08 | DVHPN2 ---
CNM Labor Progress Note Date and Time Seen Date Seen: Feb 23, 2025 Time Seen: 03:40 Subjective Patient reports: No new complaints Subjective Comment *late entry due to patient care Dorothy is feeling upper back pain and states she is unable to push effectively because her back and neck are hurting. Monitoring Method Monitoring Method: External Lab Results Lab Results Vital Signs Date Time Temp Pulse Resp B/P (MAP) Pulse Ox O2 Delivery O2 Flow Rate FiO2 02/22/25 23:53 135/74 Current Medications Medications (Trade) Dose Ordered Sig/Bradly Start Time Stop Time Status Last Admin Dose Admin Lactated Ringer's 1,000 ml @ 125 mls/hr Q8H 02/22/25 15:30 02/22/25 23:39 125 MLS/HR Witch Eliana (Tucks) 1 pad PRN PRN 02/22/25 15:30 02/22/25 16:46 1 PAD Sodium Lauryl Sulfate (Phisoderm) 240 ml PRN PRN 02/22/25 15:30 02/22/25 16:46 240 ML Benzocaine (Dermoplast) 1 applic PRN PRN 02/22/25 15:30 02/22/25 16:46 1 APPLIC Butorphanol Tartrate (Stadol Injection) 1 mg Q4HPRN PRN 02/22/25 15:30 Butorphanol Tartrate (Stadol Injection) 2 mg Q4HPRN PRN 02/22/25 15:30 Lidocaine HCl (Xylocaine) 20 ml ONCE PRN 02/22/25 15:30 Oxytocin 500 ml @ 999 mls/hr Q31M ONCE 02/22/25 15:30 02/22/25 16:00 DC Oxytocin 500 ml @ 125 mls/hr Q4H ONCE 02/22/25 16:00 02/22/25 19:59 DC Oxytocin 1,000 ml @ 6 ml/hr Q24H 02/22/25 16:15 Terbutaline Sulfate (Brethine Inj) 0.25 mg ONCE PRN 02/22/25 16:15 Naloxone HCl (Narcan) 0.2 mg PRN ONCE 02/22/25 17:45 02/22/25 17:46 DC Ephedrine Sulfate (ePHEDrine SULFATE) 10 mg PRN ONCE 02/22/25 17:45 02/22/25 17:46 DC Fentanyl Citrate 100 mcg ONCE ONCE 02/22/25 17:45 02/22/25 17:46 DC 02/22/25 23:53 100 MCG Famotidine (Pepcid Injection) 20 mg ONCE ONCE 02/22/25 19:45 02/22/25 20:03 DC Diphenhydramine HCl (Benadryl Injection) 25 mg Q6HP PRN 02/22/25 19:45 Lactated Ringer's 1,000 ml @ 1,000 mls/hr Q1H ONCE 02/23/25 04:30 02/23/25 05:29 Cefazolin Sodium/ Dextrose 50 ml @ 50 mls/hr ONCE ONCE 02/23/25 04:30 02/23/25 05:29 Oxytocin 1,000 ml @ 125 mls/hr Q8H ONCE 02/23/25 04:45 02/23/25 12:44 Ondansetron HCl (Zofran) 4 mg Q4HP PRN 02/23/25 04:45 Cefazolin Sodium 50 ml @ 100 mls/hr Q8H 02/23/25 12:30 02/24/25 04:59 X[place]ham Gum (Chewing Gum) 1 gum ONCE ONCE 02/23/25 04:45 02/23/25 04:46 DC Laboratory Tests Test 02/22/25 16:00 02/22/25 15:25 Range/Units White Blood Count 12.6 H 4.4-10.8 10^3/uL Red Blood Count 4.32 4.0-5.20 10^6/uL Hemoglobin 13.3 12.2-16.2 g/dL Hematocrit 39.0 36.0-46.0 % Mean Corpuscular Volume 90.4 80.0-100.0 fL Mean Corpuscular Hemoglobin 30.9 28.0-32.0 pg Mean Corpuscular Hemoglobin Concent 34.2 32.0-36.0 g/dL Red Cell Distribution Width 13.5 11.8-14.3 % Platelet Count 136 L 140-450 10^3/uL Mean Platelet Volume 11.7 H 6.9-10.8 fL Neutrophils (%) (Auto) 75.1 37.0-80.0 % Lymphocytes (%) (Auto) 18.3 10.0-50.0 % Monocytes (%) (Auto) 5.3 0.0-12.0 % Eosinophils (%) (Auto) 0.5 0.0-7.0 % Basophils (%) (Auto) 0.8 0.0-2.0 % Neutrophils # (Auto) 9.5 H 1.6-8.6 10 ^3/uL Lymphocytes # (Auto) 2.3 0.4-5.4 10 ^3/uL Monocytes # (Auto) 0.7 0-1.3 10 ^3/uL Eosinophils # (Auto) 0.1 0-0.8 10 ^3/uL Basophils # (Auto) 0.1 0-0.2 10 ^3/uL Nucleated Red Blood Cells 0.0 % Prothrombin Time 9.8 9.3-11.8 sec Prothrombin Time INR 0.92 0.9-1.15 Activated Partial Thromboplast Time 26.0 24.5-34.5 SEC Sodium Level 139 136-145 mmol/L Potassium Level 3.9 3.5-5.1 mmol/L Chloride Level 105 98-107 mmol/L Carbon Dioxide Level 23 20-31 mmol/L Anion Gap 11 5-15 Blood Urea Nitrogen 8 L 9-23 mg/dL Creatinine 0.86 0.550-1.02 mg/dL Glomerular Filtration Rate Calc 95 >90 mL/min BUN/Creatinine Ratio 9.3 L 10.0-20.0 Serum Glucose 91 74-106 mg/dL Calcium Level 9.4 8.7-10.4 mg/dL Total Bilirubin 0.2 0.2-1.0 mg/dL Aspartate Amino Transferase (AST) 17 13-40 U/L Alanine Aminotransferase (ALT) 16 7-40 U/L Alkaline Phosphatase 166 H 46-116 U/L Total Protein 6.5 5.7-8.2 g/dL Albumin 3.6 3.2-4.8 g/dL Treponema pallidum Antibody Non-reactive Negative Hepatitis C Antibody Negative Negative Urine Color Yellow Yellow Urine Clarity Turbid H Clear Urine pH 6.5 5.0-9.0 Urine Specific [place] 1.020 1.001-1.035 Urine Protein Negative Negative Urine Ketones Negative Negative Urine Blood Negative Negative /uL Urine Nitrite Negative Negative Urine Bilirubin Negative Negative Urine Urobilinogen Normal Negative mg/dL Urine Leukocyte Esterase 2+ Negative /uL Urine RBC 1 0 - 4 /hpf Urine Microscopic WBC 6 H 0-5 /HPF Urine Squamous Epithelial Cells Mod <5 /hpf Urine Bacteria None seen None Seen /hpf Urine Mucus Few None Seen Urine Yeast (Budding) Occasional None Seen /hpf Urine Glucose Normal Normal mg/dL Urine Opiates Screen Neg NEGATIVE Urine Fentanyl Screen Neg NEGATIVE Urine Barbiturates Screen Neg NEGATIVE Urine Phencyclidine Screen Neg NEGATIVE Urine Amphetamines Screen Neg NEGATIVE Urine Benzodiazepines Screen Neg NEGATIVE Urine Cocaine Screen Neg NEGATIVE Urine Cannabinoids Screen Neg NEGATIVE Assessment Assessment ASSESSMENT -29 yo with IUP at 40w2d -Induction of labor- PIH -Arrest of second stage of labor -Category 2 tracing -hx: asthma -SROM @ 1554. bloody fluid -GBS negative Plan Plan PLAN --Continue repositioning patient frequently and as needed for tracing and maternal comfort -hx: asthma. no hemabate. team aware. -Minimal maternal pushing effort. No change in station after 3 hours of pushing. Per ACOG guidelines, criteria for NTSV arrest of second stage met. Called Zand to bedside to evaluate for primary section Plan discussed with: Patient, Spouse Visit Coding OBGYN Date of Service: Feb 23, 2025 Billing Provider: LISA LORD CNM MICROBIOLOGICAL LAB TECHNICIAN Common Visit Codes: [id number] INP/OBS CARE(HIGH) LISA LORD CNM Feb 23, 2025 05:08
[2025-02-23] MEDS ORDERED: HYDROmorphone HCL 2 MG/ML VL/or syr ONE (05:11)
[2025-02-23] MEDS ORDERED: MIDAZOLAM HCL 2MG/2ML 2ml VIAL (1mg/ml) ONE (05:11)
[2025-02-23] MEDS ORDERED: ROCURONIUM 10MG/ML 10ML VIAL IV ONE (05:12)
[2025-02-23] MEDS ORDERED: PROPOFOL 10 MG/ML 20 ML IV ONE (05:12)
[2025-02-23] MEDS: CARBOPROST TROMETHAMINE 250 MCG/1ML VIAL IM ONE (05:14)
[2025-02-23] MEDS ORDERED: SUGAMMADEX 200mg/2ml Vial (100MG/ML) IV ONE (05:31)
[2025-02-23] MEDS ORDERED: HYDROmorphone HCL 2 MG/ML VL/or syr IV PRN (06:00)
[2025-02-23] MEDS: ACETAMINOPHEN IV 1000 MG/100ML (10MG/ML) IV ONE (06:31)
[2025-02-23] MEDS ORDERED: DIPHENOXYLATE W/ATROPINE 2.5 MG TAB PO ONE (06:40)
[2025-02-23] MEDS ORDERED: DIPHENOXYLATE W/ATROPINE 2.5 MG TAB PO PRN (08:00)
[2025-02-23] MEDS: DIPHENOXYLATE W/ATROPINE 2.5 MG TAB ONE (08:08)
--- NOTE | 2025-02-23 08:14 | DVHOP2 ---
Operative Report DATE OF OPERATION: 02/23/25 PREOPERATIVE DIAGNOSES: Term iol ,ftp,arrest of descent,macrosomia,morbid obesity, POSTOPERATIVE DIAGNOSES: same,op,nuchal cord SURGEON: Rosina Montero D.O./cosmo ANESTHESIOLOGIST: stanton TYPE OF ANESTHESIA : general CONSENT: The patient was informed of the risks and benefits of the procedure. The patient was informed of the risks and benefits of the procedure. These include but are not limited to , complications of anesthesia, postoperative infection, incomplete relief of symptoms, recurrence of symptoms, damage to blood vessels, nerves and tendons, deep venous thrombosis, pulmonary embolism and possible need for repeat surgery in the future. FINDINGS: Baby [boy] with Apgars of [8] and [9]. Grossly normal appearing tubes and ovaries.op,nuchal cord PROCEDURES: Primary low transverse section. PROCEDURE IN DETAIL: The patient was taken to the operating room. She already had an epidural in place. however she was place dunder general anesthesia. She was then placed in supine position with a leftward tilt. A Pfannenstiel skin incision was made 2 cm above the symphysis pubis. This incision was carried to the underlying layer of fascia. The fascia was nicked in the midline. The incision was extended laterally. The superior aspect of the fascial incision was grasped and eleva stephanie. The same procedure was done to the inferior aspect of the fascial incision. The rectus muscles were then in the midline. Peritoneum was identified and entered. Peritoneal incision was extended superiorly and inferiorly with good visualization of the bladder. Bladder blade was inserted. Vesicouterine peritoneum was identified and entered. Lower uterine segment was incised in a transverse fashion. The infant was delivered from vertex presentation. was baby [b] with Apgars [8] and [9]. Placenta was then removed manually. Uterus was exteriorized and cleared of all clots and debris. The incision was repaired using 0 Vicryl in a double-layered fashion. No bleeding was noted. Uterus was then returned to the abdomen. The gutters were cleared off all clots and debris. Peritoneum was closed using 0 Vicryl, fascia was closed using 0 Maxon, and skin was closed using edy. The patient tolerated the procedure well. She was taken to the recovery room in stable condition. ESTIMATED BLOOD LOSS: Estimated blood loss was noted to be 1000 mL. Visit Coding OBGYN Date of Service: Feb 23, 2025 Billing Provider: ROSINA MONTERO DO POLICE CAPTAIN Common Visit Codes: [id number] INP/OBS CARE (HIGH) POLICE CAPTAIN Procedure Codes: [id number] DELIVERY ONLY ROSINA MONTERO DO Feb 23, 2025 08:14
--- NOTE | 2025-02-23 08:27 | POSTOP ---
Post-Operative Note Post-Operative Note Preop Diagnosis term preg ,ftp,macrosmia ,morbid obesity, Postop Diagnosis: same,op,nuchal cord Operation performed pltcs Specimen baby boy,apgars 8-9,op,nuchal cord Anesthesia: General Anesthesiologist: stanton Blood Loss(fluid mgmt) 1000ml Surgeon Claudia Montero Cloth Shrinker cosmo Implant na Complications & Mgmt none Date 02/23/25 Time 08:24 Visit Coding OBGYN Date of Service: Feb 23, 2025 Billing Provider: CLAUDIA MONTERO DO DATA VIRTUALIZATION CONSULTANT Common Visit Codes: [id number] OBS CARE (HIGH) DATA VIRTUALIZATION CONSULTANT Procedure Codes: [id number] DELIVERY ONLY CLAUDIA MONTERO DO Feb 23, 2025 08:27
[2025-02-23] MEDS: ceFAZolin 1GM/50ML 50 ML IV SCH (12:50)
[2025-02-23] MEDS: ACETAMINOPHEN IV 1000 MG/100ML (10MG/ML) IV PRN (13:20)
[2025-02-23] MEDS ORDERED: OXYTOCIN 10UNIT/ML 1ML VIAL IV ONE (14:25)
[2025-02-23 19:54] LABS: Hematocrit 32.5 % (36.0-46.0); Hemoglobin 10.8 g/dL (12.2-16.2); Mean Corpuscular Hemoglobin 30.5 pg (28.0-32.0); Mean Corpuscular Volume 92.2 fL (80.0-100.0); Nucleated Red Blood Cells % 0.0 %
[2025-02-23] MEDS: MORPHINE SULFATE 4 MG/ML SYR/VIAL IV PRN (21:28)
[2025-02-24] VITALS (9 sets, daily range): BP systolic 115–143; BP diastolic 63–83; PULSE 91–114; RESP 15–18; TEMP 98–99.2; O2SAT 95–97
[2025-02-24] MEDS ORDERED: HYDROcodone-ACET 5/325MG TAB PO PRN (05:30)
[2025-02-24] MEDS: HYDROcodone-ACET 5/325MG TAB PO PRN (05:57)
[2025-02-24] MEDS: SIMETHICONE 80 MG CHEWABLE TABLET PO SCH (05:57)
--- NOTE | 2025-02-24 06:46 | DVHPN2 ---
Progress Note Date Seen: Feb 24, 2025 Subjective Dorothy is sitting up and football hold on L side upon entry to room. States she is doing well, but wants something stronger for pain management. Her partner is asleep at bedside -Lochia minimal -Clear diet well tolerated. -Ambulating and voiding well w/o feeling dizzy or lightheaded -Passing flatus but no BM yet. - w/o problem vital signs Vital Sign Date Time Temp Pulse Resp B/P (MAP) Pulse Ox O2 Delivery O2 Flow Rate FiO2 02/24/25 05:00 15 02/24/25 02:30 98.2 98.2 02/24/25 01:30 94 124/72 (89) 95 02/23/25 19:00 Room Air 02/23/25 05:53 6.0 Total Intake and Output 02/23/25 02/23/25 02/24/25 15:00 23:00 07:00 Intake Total 400 ml Output Total 1200 ml 200 ml Balance 400 ml -1200 ml -200 ml medications Current Medications Medications Dose Ordered Sig/Bradly Route Start Time Stop Time Status Last Admin Dose Admin Yaquelin Monroy 1 pad PRN PRN TOP 02/22/25 15:30 02/22/25 16:46 1 PAD Sodium Lauryl Sulfate 240 ml PRN PRN TOP 02/22/25 15:30 02/22/25 16:46 240 ML Benzocaine 1 applic PRN PRN TOP 02/22/25 15:30 02/22/25 16:46 1 APPLIC Butorphanol Tartrate 1 mg Q4HPRN PRN IV 02/22/25 15:30 Butorphanol Tartrate 2 mg Q4HPRN PRN IV 02/22/25 15:30 Hold Lidocaine HCl 20 ml ONCE PRN IJ 02/22/25 15:30 Cancel Oxytocin 1,000 ml @ 6 ml/hr Q24H IV 02/22/25 16:15 Cancel Terbutaline Sulfate 0.25 mg ONCE PRN SC 02/22/25 16:15 Cancel Diphenhydramine HCl 25 mg Q6HP PRN IV 02/22/25 19:45 Ondansetron HCl 4 mg Q4HP PRN IV 02/23/25 04:45 Diphenoxylate HCl/ Atropine 2.5 mg PRN PRN PO 02/23/25 08:00 Cancel Docusate Sodium 100 mg Q12HR PO 02/24/25 10:00 Dimethicone 80 mg QID PO 02/24/25 06:00 02/24/25 05:57 80 MG Ibuprofen 800 mg Q8HP PRN PO 02/24/25 05:30 Acetaminophen/ Hydrocodone Bitart 1 tab Q4HPRN PRN PO 02/24/25 05:30 Acetaminophen/ Hydrocodone Bitart 2 tab Q4HPRN PRN PO 02/24/25 05:30 02/24/25 05:57 2 TAB laboratory and microbiology Laboratory Tests 02/23/25 19:39 02/22/25 16:00 Test 02/22/25 16:00 Range/Units Serum Glucose 91 74-106 mg/dL Objective -A&O x4. No apparent distress. Affect appropriate -Afebrile, VSS -Chest: heart and lung sounds normal. -Breasts: Nipples intact w/o cracks or soreness -Abdomen: normal BS, soft, non-tender, no rebound or guarding, fundus firm @ U- 1, -Lower abdominal incision site with dressing dry and intact. No edema, erythema or induration -Extremities: no edema or tenderness Problems(with codes): (1) Status post delivery Assessment/Plan ASSESSMENT 29 yo now Post operative & ppd # 1 s/p Primary Section for arrest of second stage of labor, doing well. Blood Type: B+ Breast feeding Rubella Immune PLAN -Continue pain management with oral medications as previously ordered. RN notified that patient requesting norco. -Regular diet ordered. Patient given sandwich and crackers -Increase fluid intake and fiber in diet to promote regular bowel movements, Laxative PRN -Educated patient on self-care -Continue routine care Plan discussed with: Patient Visit Coding OBGYN Date of Service: Feb 24, 2025 Billing Provider: LISA LORD CNM TAILINGS DAM LABORER Common Visit Codes: [id number] INP/OBS CARE(HIGH) LISA LORD CNM Feb 24, 2025 06:46
[2025-02-24 09:07] LABS: Hematocrit 31.3 % (36.0-46.0); Hemoglobin 10.4 g/dL (12.2-16.2); Mean Corpuscular Hemoglobin 30.7 pg (28.0-32.0); Mean Corpuscular Volume 92.4 fL (80.0-100.0); Nucleated Red Blood Cells % 0.0 %
[2025-02-24] MEDS: DOCUSATE SOD 100 MG CAP PO SCH (09:45)
[2025-02-24] MEDS: IBUPROFEN 800 MG TAB PO PRN (09:45)
[2025-02-25 03:00] VITALS: BP 119/69; PULSE 100; RESP 17; TEMP 99.2
--- NOTE | 2025-02-25 03:54 | DVHDS2 ---
Discharge Summary Date of Admission Feb 22, 2025 at 14:45 Date of Discharge: Feb 25, 2025 Admitting Diagnosis <> IUP at 40w 2d <> Labor <> Obesity Wounds: Section Labs/Diagnostic Data: Laboratory Results Test 02/24/25 08:32 02/22/25 16:00 02/22/25 15:25 White Blood Count 18.9 10^3/uL (4.4-10.8) Red Blood Count 3.39 10^6/uL (4.0-5.20) Hemoglobin 10.4 g/dL (12.2-16.2) Hematocrit 31.3 % (36.0-46.0) Mean Corpuscular Volume 92.4 fL (80.0-100.0) Mean Corpuscular Hemoglobin 30.7 pg (28.0-32.0) Mean Corpuscular Hemoglobin Concent 33.2 g/dL (32.0-36.0) Red Cell Distribution Width 13.9 % (11.8-14.3) Platelet Count 114 10^3/uL (140-450) Mean Platelet Volume 10.9 fL (6.9-10.8) Neutrophils (%) (Auto) 84.3 % (37.0-80.0) Lymphocytes (%) (Auto) 10.7 % (10.0-50.0) Monocytes (%) (Auto) 4.6 % (0.0-12.0) Eosinophils (%) (Auto) 0.3 % (0.0-7.0) Basophils (%) (Auto) 0.1 % (0.0-2.0) Neutrophils # (Auto) 15.9 10 ^3/uL (1.6-8.6) Lymphocytes # (Auto) 2.0 10 ^3/uL (0.4-5.4) Monocytes # (Auto) 0.9 10 ^3/uL (0-1.3) Eosinophils # (Auto) 0.1 10 ^3/uL (0-0.8) Basophils # (Auto) 0 10 ^3/uL (0-0.2) Nucleated Red Blood Cells 0.0 % Prothrombin Time 9.8 sec (9.3-11.8) Prothrombin Time INR 0.92 (0.9-1.15) Activated Partial Thromboplast Time 26.0 SEC (24.5-34.5) Sodium Level 139 mmol/L (136-145) Potassium Level 3.9 mmol/L (3.5-5.1) Chloride Level 105 mmol/L (98-107) Carbon Dioxide Level 23 mmol/L (20-31) Anion Gap 11 (5-15) Blood Urea Nitrogen 8 mg/dL (9-23) Creatinine 0.86 mg/dL (0.550-1.02) Glomerular Filtration Rate Calc 95 mL/min (>90) BUN/Creatinine Ratio 9.3 (10.0-20.0) Serum Glucose 91 mg/dL (74-106) Calcium Level 9.4 mg/dL (8.7-10.4) Total Bilirubin 0.2 mg/dL (0.2-1.0) Aspartate Amino Transferase (AST) 17 U/L (13-40) Alanine Aminotransferase (ALT) 16 U/L (7-40) Alkaline Phosphatase 166 U/L (46-116) Total Protein 6.5 g/dL (5.7-8.2) Albumin 3.6 g/dL (3.2-4.8) Treponema pallidum Antibody Non-reactive (Negative) Hepatitis C Antibody Negative (Negative) Urine Color Yellow (Yellow) Urine Clarity Turbid (Clear) Urine pH 6.5 (5.0-9.0) Urine Specific [place] 1.020 (1.001-1.035) Urine Protein Negative (Negative) Urine Ketones Negative (Negative) Urine Blood Negative /uL (Negative) Urine Nitrite Negative (Negative) Urine Bilirubin Negative (Negative) Urine Urobilinogen Normal mg/dL (Negative) Urine Leukocyte Esterase 2+ /uL (Negative) Urine RBC 1 /hpf (0 - 4) Urine Microscopic WBC 6 /HPF (0-5) Urine Squamous Epithelial Cells Mod /hpf (<5) Urine Bacteria None seen /hpf (None Seen) Urine Mucus Few (None Seen) Urine Yeast (Budding) Occasional /hpf (None Urine Glucose Normal mg/dL (Normal) Urine Opiates Screen Neg (NEGATIVE) Urine Fentanyl Screen Neg (NEGATIVE) Urine Barbiturates Screen Neg (NEGATIVE) Urine Phencyclidine Screen Neg (NEGATIVE) Urine Amphetamines Screen Neg (NEGATIVE) Urine Benzodiazepines Screen Neg (NEGATIVE) Urine Cocaine Screen Neg (NEGATIVE) Urine Cannabinoids Screen Neg (NEGATIVE) Other Laboratory Tests 02/24/25 08:32 02/22/25 16:00 Brief Hx & Hospital Course: Ms Dorothy Leyva was admitted for labor at 40w 2d EGA on 02/22/2025. Labor progressed to 2nd stage. However there was arrest of descent in 2nd stage [id number]. Hence Section was offered which the patient agreed. She had section under epidural anesthsia (See Operation note for details) Normal post-operative and course thus far; meeting milestones w/o any sign of infection or complication. Operations or Procedures Section Condition at Discharge: Good Final Diagnosis/Problems List same,op,nuchal cord Discharge Disposition: Home Discharge Instruct/Medications Diet: Regular Diet comment: Routine regular diet rich in fiber, protein, iron and vitamin C with adequate fluid intake Activity: No Restrictions, As Tolerated Activity comment: Unrestricted. Advance as tolerated. Balance activities with rest periods. No heavy lifting, pushing or straining. Pelvic rest x 6weeks Follow Up/Referral: Follow up with OB Provider in 1 week Medications: [place], Ibuprofen, Docusate Sodium Vitamin Scheduled Docusate Sodium (Colace), 1 CAP PO BID Vit W/ Ferrous Fumara ( One Daily), 1 TAB PO DAILY, (Reported) Scheduled PRN Hydrocodone-Acetaminophen (Hydrocodone/Acetaminophen 10-325 mg), 1 TAB PO Q6HP PRN Ibuprofen (Ibuprofen), 800 MG PO TID PRN Discharge Statement: Post operative and self care instructions given. self care instructions given. emergency signs and symptoms including but not limited to pre-eclampsia precautions and signs of infection, PPH & of PPD reviewed with patient. Follow up with OB Provider in 1 week "Patient was advised to return to the ER or call 911 if any headaches, dizziness, shortness of breath, chest pain, abdominal pain, bleeding, fevers, or worsening of medical condition. Patient was counseled about treatment plan, medications, possible side effects, patientverbalized understanding. All questions were answered to the best of my ability. This discharge took greater then 30 minutes in planning, reviewing documentation, counseling the patient, and discussing with other team members." ASSESSMENT ASSESSMENT Hospital Course Ms Dorothy Leyva was admitted for labor at 40w 2d EGA on 02/22/2025. Labor progressed to 2nd stage. However there was arrest of descent in 2nd stage [id number]. Hence Section was offered which the patient agreed. She had section under epidural anesthsia (See Operation note for details) Normal post-operative and course thus far; meeting milestones w/o any sign of infection or complication. Assessment same,op,nuchal cord Visit Coding OBGYN Date of Service: Feb 25, 2025 Billing Provider: MORENO JANSEN CNM [employer]ANT Common Visit Codes: [id number] DISCH DAY <30MIN MORENO JANSEN CNM Feb 25, 2025 03:54
[2025-02-25 07:00] VITALS: BP 130/84; PULSE 100; RESP 20; TEMP 98.9; O2SAT 97
--- NOTE | 2025-02-25 08:39 | DVHPN2 ---
Progress Note Date Seen: Feb 25, 2025 Subjective S: Lochia minimal. Regular diet well tolerated. Ambulating and voiding well w/o feeling dizzy or lightheaded. Pain relieved with oral analgesics. Passing flatus but no BM yet. w/o problem Desires and Requests to be discharged today vital signs Vital Sign Date Time Temp Pulse Resp B/P (MAP) Pulse Ox O2 Delivery O2 Flow Rate FiO2 02/25/25 07:00 100 20 97 Room Air 02/25/25 07:00 98.9 130/84 (99) 98.9 Total Intake and Output 02/24/25 02/24/25 02/25/25 15:00 23:00 07:00 Output Total 1600 ml Balance -1600 ml medications Current Medications Medications Dose Ordered Sig/Bradly Route Start Time Stop Time Status Last Admin Dose Admin Yaquelin Monroy 1 pad PRN PRN TOP 02/22/25 15:30 02/22/25 16:46 1 PAD Sodium Lauryl Sulfate 240 ml PRN PRN TOP 02/22/25 15:30 02/22/25 16:46 240 ML Benzocaine 1 applic PRN PRN TOP 02/22/25 15:30 02/22/25 16:46 1 APPLIC Butorphanol Tartrate 1 mg Q4HPRN PRN IV 02/22/25 15:30 Butorphanol Tartrate 2 mg Q4HPRN PRN IV 02/22/25 15:30 Hold Lidocaine HCl 20 ml ONCE PRN IJ 02/22/25 15:30 Cancel Oxytocin 1,000 ml @ 6 ml/hr Q24H IV 02/22/25 16:15 Cancel Terbutaline Sulfate 0.25 mg ONCE PRN SC 02/22/25 16:15 Cancel Diphenhydramine HCl 25 mg Q6HP PRN IV 02/22/25 19:45 Ondansetron HCl 4 mg Q4HP PRN IV 02/23/25 04:45 Diphenoxylate HCl/ Atropine 2.5 mg PRN PRN PO 02/23/25 08:00 Cancel Docusate Sodium 100 mg Q12HR PO 02/24/25 10:00 02/24/25 22:19 100 MG Dimethicone 80 mg QID PO 02/24/25 06:00 02/25/25 05:41 80 MG Ibuprofen 800 mg Q8HP PRN PO 02/24/25 05:30 02/25/25 03:39 800 MG Acetaminophen/ Hydrocodone Bitart 1 tab Q4HPRN PRN PO 02/24/25 05:30 Acetaminophen/ Hydrocodone Bitart 2 tab Q4HPRN PRN PO 02/24/25 05:30 02/25/25 05:54 2 TAB laboratory and microbiology Laboratory Tests 02/24/25 08:32 02/22/25 16:00 Test 02/22/25 16:00 Range/Units Serum Glucose 91 74-106 mg/dL Objective A&O x3 NAD. Afebrile, VSS Chest: heart and lung sounds normal. Breasts: Nipples intact w/o cracks or soreness Abdomen: normal BS, soft, non-tender, no rebound or guarding, fundus firm @ U- 1, Lower abdominal Incision site with dressing on, same clean, dry and intact. No edema, erythema or induration Extremities: no edema or tenderness Lochia - minimal Assessment/Plan 29yo now Post operative & ppd #2 s/p Primary Section doing well. Blood Type: B Rh: Positive Breast feeding Rubella Immune Pain control with oral medications Bowel regimen: Increase fluid intake and fiber in diet, Laxative PRN PP BCM Plan: Undecided Discharge plan: May discharge home later today if condition remains stable Plan discussed with: Patient Visit Coding OBGYN Date of Service: Feb 25, 2025 Billing Provider: MORENO JANSEN CNM [employer]ATER Common Visit Codes: [id number] INP/OBS CARE(HIGH) MORENO JANSEN CNM Feb 25, 2025 08:39
== END 2025-02-25 11:42 | disposition home or self-care (01) | DRG 788 ==
LOC: LDRP 14:45
PROVIDERS: ADMIT Obstetrics & Gynecology; ATTEND Obstetrics & Gynecology
PROC: 10D00Z1 Extraction of Products of Conception, Low, Open Approach (ICD-10-PCS; principal; 2025-02-23 04:50)
DX: O48.0 Post-term pregnancy (principal); O13.4 Gestational [pregnancy-induced] hypertension without significant proteinuria, complicating childbirth; Z3A.40 40 weeks gestation of pregnancy; O36.63X0 Maternal care for excessive fetal growth, third trimester, not applicable or unspecified; O62.1 Secondary uterine inertia; O99.52 Diseases of the respiratory system complicating childbirth; O99.214 Obesity complicating childbirth; O69.81X0 Labor and delivery complicated by cord around neck, without compression, not applicable or unspecified; O76 Abnormality in fetal heart rate and rhythm complicating labor and delivery; Z37.0 Single live birth; J45.909 Unspecified asthma, uncomplicated; E66.01 Morbid (severe) obesity due to excess calories
CPT/HCPCS: 36415; 59025; 62282; 76815; 80053; 80307; 81001; 81002; 85025; 85610; 85730; 86780; 86803; 86850; 86900; 86901; 94760; 94762; 96360; 96361; 96365; 96366; 96374; G0378; J0131; J1100; J1885; J2250; J2405; J2590; J2704